=== PATIENT | male | born 1995 | race Caucasian/White ===

== ENCOUNTER 2021-12-13 03:40 | Emergency (ER) | payer SELFPAY ==
[~2021-12-13] VITALS: Ht 160 cm; Wt 72.6 kg
[2021-12-13 04:09] VITALS: BP 146/81
--- NOTE | 2021-12-13 04:42 | NUR ---
LEFT EYE SWAB COLLECTED AND TAKEN TO LAB.
--- NOTE | 2021-12-13 04:42 | NUR ---
PT TAKEN TO BED 09 FOR EXAMINATION BY ROSEANN BUSTOS.
[2021-12-13] MEDS ORDERED: ERYT5OIN58 OP (04:59)
[2021-12-13] MEDS ORDERED: cefTRIAXone 500 MG VIAL ONE (05:00)
[2021-12-13] MEDS ORDERED: LIDOCAINE MPF 1% 5 ML ONE ×2 (05:01→05:11)
[2021-12-13] MEDS: cefTRIAXone 500 MG in LIDOCAINE MPF 1% 1 ML IM ONE (05:20)
[2021-12-13] MEDS: FLUORESCEIN OPTH STRIP 1 MG OP ONE (05:20)
--- NOTE | 2021-12-13 05:20 | NUR ---
26 yo m [place] [facility] [facility] with c/c of left eye discharge. pt is to be pre-booked. copious amount of yellow discharge present in left eye with redness x1day per pt. pt states he just woke up that way. denies hx, rx and allergies
[2021-12-13] MEDS: ERYTHROMYCIN 0.5% OPTH OINT 1 GM TUBE OP ONE (05:21)
[2021-12-13] MEDS: AZITHROMYCIN 250 MG TAB PO ONE (05:21)
[2021-12-13 05:22] VITALS: BP 146/81
--- NOTE | 2021-12-13 05:22 | NUR ---
Patient discharged with v/s stable. Written and verbal after care instructions given and explained. Patient alert, oriented and verbalized understanding of instructions. Police with in custody. All questions addressed prior to discharge. ID band removed. Patient advised to follow up with PMD. Rx of erythromycin given. Patient educated on indication of medication including possible reaction and side effects. Opportunity to ask questions provided and answered.
== END 2021-12-13 05:22 ==
LOC: MED 03:40
DX: H10.9 Unspecified conjunctivitis (principal); B96.89 Other specified bacterial agents as the cause of diseases classified elsewhere; F17.200 Nicotine dependence, unspecified, uncomplicated; F15.90 Other stimulant use, unspecified, uncomplicated
CPT/HCPCS: 87070; 87075; 96372; 99284; J0696; J2001